=== PATIENT | male | born 1990 | race Caucasian/White ===

== ENCOUNTER 2019-11-03 03:19 | Emergency (ER) | payer MEDICAID ==
[~2019-11-03] VITALS: Ht 182.9 cm; Wt 95.2 kg
== END 2019-11-03 06:28 | disposition home or self-care (01) ==
LOC: ED 03:19
DX: R45.851 Suicidal ideations (principal); F10.129 Alcohol abuse with intoxication, unspecified; F17.200 Nicotine dependence, unspecified, uncomplicated
CPT/HCPCS: 80053; 80176; 81001; 84443; 85025; 99284; G0480